=== PATIENT | female | born 1985 | race Caucasian/White ===

== ENCOUNTER 2017-04-10 11:36 | Emergency (ER) | payer OTHER ==
--- NOTE | ~2017-04-10 | EKG ---
PATIENT: ANUM YANG UNIT #: [id number] Ventricular Rate: 65 BPM Atrial Rate: 65 BPM P-R Interval: 172 ms QRS Duration: 86 ms Q-T Interval: 400 ms QTC Calculation(Bezet): 416 ms P [place]: 38 degrees Calculated R [place]: 42 degrees Calculated T [place]: 10 degrees Diagnosis Line: Normal sinus rhythm Diagnosis Line: Normal ECG Diagnosis Line: No previous ECGs available Diagnosis Line: Confirmed by JATINDER FORREST MD ([id number]) on Diagnosis Line: 04/11/2017 1:27:29 PM INTERPRETING MD: ADRIANE LEYVA
--- NOTE | ~2017-04-10 | CR63 ---
[facility] A Service of [facility] & [facility] RADIOLOGY TEXT RESULTS PATIENT: ANUM YANG LOCATION: SED : 87 UNIT #: [id number] AGE: [address]: BASILIA MACKEY SEX: F ORDER DR: [id number] [place] [id number] E MR#: [id number] Acc #: [id number] NAME: ANUM YANG : 1985 SEX: F STUDY DATE/TIME: 04/10/2017 12:29 UNIT: SED ROOM: STUDY DESCRIPTION: CR Chest 2 View Attending Physician: Basilia Mackey Aprn Ordering Physician: Basilia Mackey Aprn Primary Care Physician: Cecil Martínez M.D. MEDICAL IMAGING REPORT This report is preliminary unless electronic signature is present. EXAM Chest, 04/10/2017, [facility]. HISTORY 31-year-old woman chest pain, congestion, short of breath. Patient indicates symptoms began yesterday. Patient is a smoker. COMPARISON Chest 03/16/2015. FINDINGS Two-view chest demonstrates normal cardiac size and configuration. Hilar structures and mediastinal contours are preserved. Bilateral lungs are clear. Bony thorax is normal. IMPRESSION Negative and stable chest. No acute finding. Dictated by... Geronimo Strong M.D. THIS IS AN ELECTRONICALLY VERIFIED REPORT Geronimo Strong M.D. at 04/11/2017 8:08 AM AGUSTIN/darrell TD: 04/10/2017 15:30 JOB #: [id number] MEDICAL IMAGING REPORT Page 1 of 1
[~2017-04-10 11:36] MED LIST: ALBUTEROL17 GM INH; AMOXICILLIN500 M1 PO; AZITHROMYCIN250 MG PO; BACLOFEN10 MG PO; BENZONATATE PO; BIRTH CONTROL PILL PO; CLEOCIN HCL150 MG PO; FLEXERIL10 MG PO; IBUPROFEN800 MG PO; LORTAB 5-325 M1 EACH PO; LORTAB 5/500 TA1 TA1 PO; MOBIC PO; NAPROSYN500 MG PO; NEURONTIN300 MG PO; NO MEDICATIONS; NORFLEX100 M1 PO; POLYTRIM EYE DR10 ML OP; PREDNISONE PO; PREDNISONE10 MG PO; ROBAXIN500 MG PO; ROBITUSSIN ALL118 ML PO; STOMACH PILL PO; TESSALON PERLE100 M1 PO; TRIAMCINOLONE A15 G8 TOP; TUSSI-ORGANIDI118 M1 PO; VOLTAREN50 MG PO; VOLTAREN75 MG PO; ZANAFLEX4 M1 PO; ZITHROMAX PO
[2017-04-10] MEDS ORDERED: DITROPAN5 MG (11:42)
[2017-04-10 13:00] LABS: POC - CKMB <1.0 ng/mL (0.0-7.9); POC - TROPONIN <0.05 ng/mL (<=0.05)
== END 2017-04-10 13:42 | disposition home or self-care (01) ==
LOC: SED 11:36
PROVIDERS: Nurse Practitioner Family
DX: J06.9 Acute upper respiratory infection, unspecified (principal); J45.909 Unspecified asthma, uncomplicated; F17.210 Nicotine dependence, cigarettes, uncomplicated; Z98.890 Other specified postprocedural states; Z88.8 Allergy status to other drugs, medicaments and biological substances; Z91.018 Allergy to other foods; Z79.899 Other long term (current) drug therapy
CPT/HCPCS: 71020; 82553; 84484; 93005; 94640; 99283